=== PATIENT | male | born 1990 | race Caucasian/White ===

== ENCOUNTER 2024-01-09 18:59 | Emergency (ER) | payer MEDICAID, SELFPAY ==
[2024-01-09 19:09] VITALS: PULSE 84; TEMP 36.8; O2SAT 100; BMI 22.8
--- NOTE | 2024-01-09 19:14 | PC.NURSE ---
Complains of right sided flank pain, urinary frequency and hematuria.
--- NOTE | 2024-01-09 19:26 | CT_ITS ---
The [address] [address] Patient Name: BOO SQUIRES MRN: [id number] date: 1990 Sex: M Assigned Patient Location: ER Current Patient Location: ED.MAIN Accession/Order Number: [id number] Exam Date: 01/09/2024 20:12 Report Date: 01/09/2024 20:51 At the request of: BEHZAD CASTILLO Procedure: CT abdomen pelvis wo con EXAM: CT abdomen pelvis wo con HISTORY: Reported hematuria COMPARISON: 02/16/2014 exam TECHNIQUE: CT exam of abdomen and pelvis was obtained from level of diaphragm to the level of symphysis pubis without IV contrast. FINDINGS: A 3 mm stone is seen in the right vesicoureteral junction causing minimal right hydronephrosis and hydroureter. No renal stones. No left renal stones. No left hydronephrosis or hydroureter. No adrenal nodules. No liver masses are seen. No intra or extrahepatic biliary dilatation. No gallstones or cholecystitis. No evidence of acute pancreatitis. Pancreatic duct is not dilated. No splenomegaly. No evidence of aortic aneurysm. Evaluation of vessels is limited due to lack of IV contrast. Clear lung bases. No aggressive osseous lesions are seen. Stable focal sclerosis in left iliac bone, most likely bone island. No bowel dilatation or bowel wall thickening. No evidence of bowel obstruction. Colonic diverticulosis with no evidence of diverticulitis. Normal appendix. Bladder, prostate and seminal vesicles grossly unremarkable. No adenopathy. CT/CT abdomen pelvis wo con IMPRESSION: 1. A 3 mm stone in the right vesicoureteral junction causing minimal right hydronephrosis and hydroureter. 2. Colonic diverticulosis with no evidence of diverticulitis. Bone island in left iliac bone. Electronically authenticated by: CHERIE ALMAGUER Date: 01/09/2024 20:51
--- NOTE | 2024-01-09 19:28 | ED.MALEGU1 ---
HPI - Male Genitourinary General Chief complaint: Urogenital-Male Stated complaint: HEMATURIA Time Seen by Provider: 01/09/24 19:12 Source: patient Mode of arrival: walk-in Limitations: no limitations History of Present Illness HPI Narrative: 33-year-old male presents because he states he saw blood in his urine. The first time it happened was 5 days ago and he had no pain. He states it looked like apple juice. He states it happened again tonight and now he has a little bit of right lower back pain. There is no injury or dysuria. No fever or cough or vomiting. Related Data Previous Rx's ?Medication ?Instructions ?Recorded tamsulosin 0.4 mg capsule (Flomax) 0.4 mg PO DAILY #7 caps 01/09/24 tramadol 50 mg tablet 50 mg PO Q8H PRN pain #14 tabs 01/09/24 Allergies Allergy/AdvReac Type Severity Reaction Status Date / Time No Known Drug Allergies Allergy Verified 01/09/24 19:08 Review of Systems ROS Narrative A ten point review of systems is negative except as noted above. Exam Narrative Exam Narrative: Nurses note and vital signs reviewed and patient is not hypoxic. General: The patient appears well and in no apparent distress. Patient is resting comfortably on cart. Skin: Warm, dry, no pallor noted. There is no rash noted. Head: Normocephalic, atraumatic Eye: Normal conjunctiva, no drainage Ears, Nose, Mouth, and Throat: oral mucosa is moist. Nares patent. Cardiovascular: Regular Rate and Rhythm Respiratory: Patient is in no distress, no accessory muscle use, lungs are clear to auscultation, no wheezing, rales or rhonchi Back: non-tender, no CVA tenderness bilaterally to percussion. GI: Soft and nontender Musculoskeletal: The patient has no evidence of calf tenderness, no pitting edema, symmetrical pulses noted bilaterally Neurological: Awake and alert Psychiatric: Cooperative Constitutional Vital Signs, click to edit/add: Last Vital Signs Temp 98.3 F 01/09/24 19:09 Pulse 84 01/09/24 19:09 Resp 18 01/09/24 19:09 Pulse Ox 100 01/09/24 19:09 O2 Del Method Room Air 01/09/24 19:09 Course Vital Signs Vital signs: Vital Signs Temperature 98.3 F 01/09/24 19:09 Pulse Rate 84 01/09/24 19:09 Respiratory Rate 18 01/09/24 19:09 Pulse Oximetry 100 01/09/24 19:09 Oxygen Delivery Method Room Air 01/09/24 19:09 Temperature 98.3 F 01/09/24 19:09 Pulse Rate 84 01/09/24 19:09 Respiratory Rate 18 01/09/24 19:09 Pulse Oximetry 100 01/09/24 19:09 Oxygen Delivery Method Room Air 01/09/24 19:09 MDM - Male Genitourinary MDM Narrative Medical decision making narrative: 3 mm kidney stone is found at the right UV junction. She is able to be discharged home on Flomax and Ultram and will follow-up with Dr. Jordan. Treatment diagnosis and follow-up were discussed with the patient. Differential Diagnosis Differential diagnosis: Likely urinary tract infection and other (Kidney stone) Lab Data Attestation: I reviewed the patient's lab results. Labs: Lab Results 01/09/24 01/09/24 Range/Units 19:39 20:35 WBC 10.0 (4.0-11.0) 10^3/uL RBC 4.47 L (4.70-6.10) 10^6/uL Hgb 13.1 L (14.0-18.0) g/dL Hct 38.9 L (42.0-54.0) % MCV 87.0 (80.0-94.0) fL MCH 29.3 (25.9-34.0) pg MCHC 33.7 (29.9-35.2) g/dL RDW 13.0 (11.0-15.0) % Plt Count 270 (150-450) 10^3/uL MPV 10.8 (9.5-13.5) fL Neut % (Auto) 52.5 (43.0-75.0) % Lymph % (Auto) 38.7 (20.5-60.0) % [place] % (Auto) 7.6 (1.7-12.0) % Eos % (Auto) 0.3 L (0.9-7.0) % Baso % (Auto) 0.7 (0.2-2.0) % Neut # (Auto) 5.2 (1.4-6.5) 10^3/uL Lymph # (Auto) 3.9 H (1.2-3.8) 10^3/uL [place] # (Auto) 0.8 (0.3-0.8) 10^3/uL Eos # (Auto) 0.0 (0.0-0.7) 10^3/uL Baso # (Auto) 0.1 (0.0-0.1) 10^3/uL Abs Immat Gran (auto) 0.02 (0.00-0.03) 10^3/uL Imm/Tot Granulo (auto) 0.2 (0.0-0.5) % Sodium 143 (136-145) mmol/L Potassium 3.2 L (3.5-5.1) mmol/L Chloride 105 (98-107) mmol/L Carbon Dioxide 29.8 (21.0-32.0) mmol/L Anion Gap 11.4 BUN 13.0 (7.0-18.0) mg/dL Creatinine 1.04 (0.70-1.30) mg/dL Est GFR ( Amer) >60 (>=60) Est GFR (Non-Af Amer) >60 (>=60) BUN/Creatinine Ratio 12.5 Glucose 93 (74-106) mg/dL Calcium 9.5 (8.5-10.1) mg/dL Urine Color Yellow (YELLOW) Urine Clarity Clear (CLEAR) Urine pH 6.0 (5.0-9.0) Ur Specific [place] 1.025 (1.005-1.025) Urine Protein 30 A (NEG/TRACE) mg/dL Urine Glucose (UA) Negative (NEGATIVE) mg/dL Urine Ketones Negative (NEGATIVE) mg/dL Urine Occult Blood Large A (NEGATIVE) Urine Nitrite Negative (NEGATIVE) Urine Bilirubin Negative (NEGATIVE) Urine Urobilinogen 0.2 (0.2-1.0) EU/dL Ur Leukocyte Esterase Trace A (NEGATIVE) Urine RBC >100 A (0-2) #/HPF Urine WBC 2-5 A (NONE SEEN) #/HPF Ur Squamous Epith Cells Few A (NONE/RARE) #/LPF Urine Crystals None seen (None Seen) #/HPF Urine Bacteria None seen (NONE SEEN) #/HPF Urine Casts None seen (NONE SEEN) #/LPF Urine Mucus Large A (NONE SEEN) Urine Yeast Seen A (NONE SEEN) Ur Culture Indicated? Yes Imaging Data CT scan - abdomen: Radiologist's impression: ITS Impressions Abdomen/Pelvis CT 01/09/24 19:26 IMPRESSION: 1. A 3 mm stone in the right vesicoureteral junction causing minimal right hydronephrosis and hydroureter. 2. Colonic diverticulosis with no evidence of diverticulitis. Bone island in left iliac bone. Electronically authenticated by: SCOTTYakelin TRIPP Date: 01/09/2024 20:51 Discharge Plan Discharge Stand Alone Forms: Portal Instructions Chief Complaint: Urogenital-Male Clinical Impression: Kidney stone Patient Disposition: Home, Self-Care Time of Disposition Decision: 20:58 Condition: Good Mode of Transportation: Private Vehicle Prescriptions / Home Meds: New tamsulosin [Flomax] 0.4 mg capsule 0.4 mg PO DAILY Qty: 7 0RF tramadol 50 mg tablet 50 mg PO Q8H PRN (Reason: pain) Qty: 14 0RF Print Language: Azeri Instructions: Kidney Stones (ED) Additional Instructions: Follow-up with Dr. Jordan Referrals: DAVID SHANE [Primary Care Provider] - 1 week Stanley Jordan MD [Physician] - 1 week
[2024-01-09 19:47] LABS: Basophils Absolute Auto 0.1 10^3/uL (0.0-0.1); Basophils Percent Auto 0.7 % (0.2-2.0); Eosinophils Percent Auto 0.3 % (0.9-7.0); Hematocrit 38.9 % (42.0-54.0); Hemoglobin 13.1 g/dL (14.0-18.0); Immature Granulocytes Abs Auto 0.02 10^3/uL (0.00-0.03); Immature Granulocytes Pct Auto 0.2 % (0.0-0.5); Lymphocytes Absolute Auto 3.9 10^3/uL (1.2-3.8); Lymphocytes Percent Auto 38.7 % (20.5-60.0); Mean Corpuscular HGB Conc 33.7 g/dL (29.9-35.2); Mean Corpuscular Hemoglobin 29.3 pg (25.9-34.0); Mean Platelet Volume 10.8 fL (9.5-13.5); Monocytes Absolute Auto 0.8 10^3/uL (0.3-0.8); Monocytes Percent Auto 7.6 % (1.7-12.0); Neutrophils Absolute Auto 5.2 10^3/uL (1.4-6.5); Neutrophils Percent Auto 52.5 % (43.0-75.0); Platelet Count 270 10^3/uL (150-450); Red Blood Count 4.47 10^6/uL (4.70-6.10)
[2024-01-09 19:54] LABS: Anion Gap 11.4; BUN Creatinine Ratio 12.5; Calcium 9.5 mg/dL (8.5-10.1); Carbon Dioxide 29.8 mmol/L (21.0-32.0); Chloride 105 mmol/L (98-107); Estimated GFR (African America >60 (>=60); Estimated GFR (Non-African Ame >60 (>=60); Glucose 93 mg/dL (74-106); Potassium 3.2 mmol/L (3.5-5.1); Sodium 143 mmol/L (136-145)
[2024-01-09] MEDS: 0.9 % SODIUM CHLORIDE 1,000 ML 1000 ML IV (20:31)
[2024-01-09 20:44] LABS: Bilirubin Urine NEGATIVE (NEGATIVE); Blood Urine LARGE (NEGATIVE); Clarity Urine CLEAR (CLEAR); Color Urine YELLOW (YELLOW); Glucose Urine UA NEGATIVE (NEGATIVE); Ketones Urine NEGATIVE (NEGATIVE); Leukocyte Esterase Urine TRACE (NEGATIVE); Nitrite Urine NEGATIVE (NEGATIVE); Protein Urine 30 mg/dL (NEG/TRACE); Specific Gravity Urine 1.025 (1.005-1.025); Urobilinogen Urine 0.2 EU/dL (0.2-1.0)
[2024-01-09 20:51] LABS: RBC Urine >100 #/HPF (0-2)
[2024-01-09 20:52] LABS: Bacteria Urine NONE SEEN #/HPF (NONE SEEN); Crystals Seen? None Seen #/HPF (None Seen); Mucus Urine LARGE (NONE SEEN); Squamous Epithelial Cell Urine FEW #/LPF (NONE/RARE)
[2024-01-09 20:53] LABS: Cast Seen? NONE SEEN #/LPF (NONE SEEN); Urine Culture Indicated YES
[2024-01-09 21:06] VITALS: BP 148/98; PULSE 90; O2SAT 100
[2024-01-09] MEDS: KETOROLAC TROMETHAMINE 30 MG/ML VIAL IVP (21:11)
== END 2024-01-09 21:24 | disposition home or self-care (01) ==
PROVIDERS: Emergency Provider Emergency Medicine; PCP Family Medicine
DX: N20.0 Calculus of kidney (principal)
CPT/HCPCS: 36415; 74176; 80048; 81001; 85025; 87086; 96374; 99285; J1885